=== PATIENT | female | born 1955 | race Caucasian/White ===

== ENCOUNTER 2024-10-10 11:31 | Emergency (ER) | payer MEDICARE, BC ==
[~2024-10-10] VITALS: Ht 160 cm; Wt 72.7 kg
[2024-10-10 11:41] VITALS: BP 141/68; PULSE 73; RESP 18; TEMP 97.4; O2SAT 97
--- NOTE | 2024-10-10 14:29 | Physician Documentation ---
History of Present Illness ~ Chief Complaint: See Chief Complaint Stated Complaint: THRUSH Time Seen by MD: 13:49 OK to notify your PCP?: Yes Source: patient Mode of Arrival: POV Exam Limitations: no limitations HPI 69-year-old female with chief complaint pain on her tongue, throat and gums which has been going on for weeks. She has been applying clobetasol to the areas but this has not been helping and she thinks that she now has thrush. She has clobetasol due to already having known lichen planus but states that she has never has had lichen planus that was like this before as it has always just been in one location. She has also been treating her symptoms with hydrogen peroxide rinses and Listerine and other similar oral rinses and symptoms have only been getting worse. Pain is worse with swallowing. No fever, chills, chest pain, sob, cough, nausea, sinus pain, difficulty swallowing. Medication Reconciliation Allergies: Coded Allergies: Penicillins (Unverified Allergy, Mild, RASH, 10/10/24) Past Medical History Past Medical History: No Pertinent History Review of Systems All Other Systems at this time: Reviewed and Negative Physical Exam Vital Signs: Temperature: 97.4, Source: Temporal, Heart Rate: 73, Respiratory Rate: 18, BP: 141/68, Pulse Oximetry: 97, Weight: 72.730 Physical Exam General Appearance: Alert, WD/WN. NAD. HEENT: NCAT, PERRL, EOMI. Buccal mucosa, posterior pharyngeal wall and on gingiva there are erythematous as well as hypopigmented areas consistent with her known lichen planus; however, tongue has white patch which is difficult to remove with tongue depressor but is removable. I Neck: Supple, trachea midline. No cervical LAD. Cardiovascular: RRR. No m/r/g. Lungs: CTAB. Breathing unlabored Extremities: Normal inspection. No edema. Skin: Warm/dry, normal color Neurological: Alert and oriented x4, normal gait. Psychiatric: Affect congruent with mood. Progress Results/Orders Results/Orders Vital Signs 10/10/24 11:41 Temp 97.4 Pulse 73 Resp 18 B/P (MAP) 141/68 Pulse Ox 97 Medical Decision Making Throat Diff Dx: Considerations: Include: AIDS, Epiglottitis, Esophageal candidiasis, Hand foot mouth disease, Herpangina, Herpetic stomatitis, Herpes simplex, Infection mononucleosis, Immunodeficiency, Moshe's angina, Peritonsillar abscess, Peritonsillar cellulitis, Pharyngitis-diphtheria, Pharyngitis-strepococcal, Pharyngitis-viral, Thrush, URI, Other Additional Comment patient has biopsy proven lichen planus which just appears to have progressed, likely due to the all the hydrogen peroxide and other abrasive rinses she has been doing. if patient's lesions in her mouth where viral or bacterial she would have LAD, fever, or other symptoms. Departure Time of Disposition: 14:30 Disposition: 01 HOME / SELF CARE / HOMELESS Impression: Primary Impression: Oral lichen planus Additional Impression: Oral thrush Discharge Instructions: Lichen Planus, [id number] Additional Instructions: I HAVE PRESCRIBED YOU ORAL PREDNISONE FOR THE SEVERE EXACERBATION OF YOUR LICHEN PLANUS I HAVE ALSO PRESCRIBED YOU A RINSE FOR YOUR THRUSH STOP ALL MOUTH RINSES, ONLY USE SALT WATER RINSES Referrals: NO PRIMARY CARE PROVIDER (PCP) Prescriptions Prednisone (Prednisone) 10 Mg Tablet 0 PO DAILY, #42 TAB Take 4 tabs daily x4 days, then 3 daily x4 days 2 daily x4 days 1 daily x4 days 1/2 daily x4 days then STOP Prov: LALO LUCAS 10/10/24 Nystatin (Nystatin) 100,000 Unit/Ml Oral.susp 5 ML PO Q6H for 10 Days, #200 ML Prov: LALO LUCAS 10/10/24 Education Educated: Patient Educated regarding: diagnosis, treatment, need for follow up Signature Scribe Signature: X Attestation: LALO LEON Oct 10, 2024 14:29
[2024-10-10] MEDS ORDERED: NYST100069 PO (14:33)
[2024-10-10] MEDS ORDERED: PRED10TA23 PO (14:33)
== END 2024-10-10 14:53 | disposition home or self-care (01) ==
LOC: ER 11:32
DX: L43.9 Lichen planus, unspecified (principal); B37.0 Candidal stomatitis; Z88.0 Allergy status to penicillin
CPT/HCPCS: 99283